=== PATIENT | female | born 1985 | race Caucasian/White ===

== ENCOUNTER 2017-04-13 13:00 | Emergency (ER) | payer SELFPAY ==
[~2017-04-13 13:00] MED LIST: Sodium Chloride Irrig Solution 250 ML BOT ONE
[2017-04-13] MEDS ORDERED: Lidocaine 1% 20 ML MDV ONE (13:20)
[2017-04-13] MEDS ORDERED: Triple Antibiotic Oint 1 GM Packet ONE (13:33)
== END 2017-04-13 14:04 | disposition home or self-care (01) ==
LOC: MADERS 13:00
DX: S61.012A Laceration without foreign body of left thumb without damage to nail, initial encounter (principal); F17.210 Nicotine dependence, cigarettes, uncomplicated; M54.9 Dorsalgia, unspecified; J45.909 Unspecified asthma, uncomplicated; G89.29 Other chronic pain; W26.0XXA Contact with knife, initial encounter
CPT/HCPCS: 12001; 99406; J2001